=== PATIENT | male | born 1980 | race Caucasian/White ===

== ENCOUNTER 2020-02-08 18:26 | Emergency (ER) | payer OTHER, SELFPAY ==
[2020-02-08 18:28] VITALS: BP 158/70; PULSE 86; RESP 18; TEMP 36.1; O2SAT 99
--- NOTE | 2020-02-08 19:32 | ED.SKABFB ---
HPI - Skin/Abscess/Foreign Bdy General Chief complaint: Skin/Abscess/Foreign Body <Lianne Martinez PA-C - Last Filed: 02/08/20 19:36> Stated complaint: Spider Bite <Lianne Martinez PA-C - Last Filed: 02/08/20 19:36> Time Seen by Provider: 02/08/20 18:43 <Lianne Martinez PA-C - Last Filed: 02/08/20 19:36> Source: patient <Lianne Martinez PA-C - Last Filed: 02/08/20 19:36> Mode of arrival: ambulatory <Lianne Martinez PA-C - Last Filed: 02/08/20 19:36> Limitations: no limitations <Lianne Martinez PA-C - Last Filed: 02/08/20 19:36> History of Present Illness HPI narrative: This is a 39-year-old male who presents the emergency department for an area of redness to his right smith since yesterday. Reports the area is painful and warm to the touch. He has not been taking any pain medication for this. Denies fever or drainage from the area. <Lianne Martinez PA-C - Last Filed: 02/08/20 19:36> Related Data Allergies/Adverse reactions: Allergies Allergy/AdvReac Type Severity Reaction Status Date / Time No Known Allergies Allergy Verified 02/08/20 18:37 <Lianne Martinez PA-C - Last Filed: 02/08/20 19:36> Review of Systems Review of Systems: Narrative: CONSTITUTIONAL: Denies fever SKIN: Reports erythema <Lianne Martinez PA-C - Last Filed: 02/08/20 19:36> All systems reviewed & are unremarkable except as noted in HPI and below <Lianne Martinez PA-C - Last Filed: 02/08/20 19:36> [facility] Past Medical History Medical History: Medical History (Updated 02/08/20 @ 19:35 by Lianne Martinez PA-C) History of gastroesophageal reflux (GERD) <YORDY Laughlin Last Filed: 02/08/20 19:36> Social History Social History: Social History (Updated 02/08/20 @ 19:33 by Lianne Martinez PA-C) Substance use: never Gender identity (if verbalized by the patient): Male <Lianne Martinez PA-C - Last Filed: 02/08/20 19:36> Exam Narrative: Exam Narrative: GENERAL: Well-appearing, well-nourished, and in no acute distress. HEAD: Normocephalic, atraumatic. EYES: EOMI. EXTREMITIES: Normal range of motion. Small area (2.5cm) of erythema and edema to the right smith, no central fluctuance to suggest abscess SKIN: Warm, dry, no rash. NEURO: No focal deficits. Alert and oriented x3. PSYCH: Normal mood and affect <Lianne Martinez PA-C - Last Filed: 02/08/20 19:36> Course Vital Signs Vital signs: Vital Signs Temperature 97.0 F L 02/08/20 18:28 Pulse Rate 86 02/08/20 18:28 Respiratory Rate 18 02/08/20 18:28 Blood Pressure 158/70 H 02/08/20 18:28 Pulse Oximetry 99 02/08/20 18:28 Temperature 98.4 F 02/08/20 20:09 Pulse Rate 73 02/08/20 20:05 Respiratory Rate 16 02/08/20 20:05 Blood Pressure 149/78 H 02/08/20 20:05 Pulse Oximetry 100 02/08/20 20:05 <Lianne Martinez PA-C - Last Filed: 02/08/20 19:36> Vital Signs Temperature 97.0 F L 02/08/20 18:28 Pulse Rate 86 02/08/20 18:28 Respiratory Rate 18 02/08/20 18:28 Blood Pressure 158/70 H 02/08/20 18:28 Pulse Oximetry 99 02/08/20 18:28 Temperature 98.4 F 02/08/20 20:09 Pulse Rate 73 02/08/20 20:05 Respiratory Rate 16 02/08/20 20:05 Blood Pressure 149/78 H 02/08/20 20:05 Pulse Oximetry 100 02/08/20 20:05 <Urszula Marin MD - Last Filed: 02/08/20 21:00> MDM - Skin/Abscess/Foreign Bdy MDM Narrative Medical decision making narrative: Patient with small area of cellulitis to the right smith present since yesterday. He is afebrile and nontoxic-appearing. He will be started on oral antibiotics. Patient will be given primary care doctor for follow-up. Patient is stable and felt appropriate for further outpatient evaluation. Patient was given warnings to return to the ER <Lianne Martinez PA-C - Last Filed: 02/08/20 19:36> Critical Care Time Critical Care Time Critical Care Time: No <Lianne Martinez PA-C - Last Filed: 05
[2020-02-08] MEDS: KETOROLAC (*BKC) 60 MG/2 ML VIAL IM (19:53)
[2020-02-08] MEDS: CEPHALEXIN 500 MG CAPSULE PO (19:54)
[2020-02-08 20:05] VITALS: BP 149/78; PULSE 73; RESP 16; TEMP 36.9; O2SAT 100
[2020-02-08 20:09] VITALS: TEMP 36.9
== END 2020-02-08 20:09 | disposition home or self-care (01) ==
PROVIDERS: Emergency Provider General Practice
DX: L03.115 Cellulitis of right lower limb (principal); K21.9 Gastro-esophageal reflux disease without esophagitis
CPT/HCPCS: 96372; 99283; A9270; J1885

== ENCOUNTER 2022-10-28 14:25 | Emergency (ER) | payer OTHER, SELFPAY ==
--- NOTE | ~2022-10-28 | XR_ITS ---
Clinical Indication: Shortness of breath, fever PA and lateral views of the chest: Comparison: 05/17/2019 Findings: There is a probable loculated right pleural effusion, moderate, at the right upper lobe reg ion. There is patchy right lung airspace disease. Left lung is clear.. Cardiomediastinal silhouette is within normal limits. Bones and soft tissues are unremarkable. Impression: Moderate probable loculated right pleural effusion. Empyema or other complex effusion are not exclude d. Patchy right midlung airspace disease, suspicious for pneumonia. Reviewed, dictated and finalized at location M. THREADER OPERATOR Impression: Moderate probable loculated right pleural effusion. Empyema or other complex ef fusion are not excluded. Patchy right midlung airspace disease, suspicious for pneumonia.
[2022-10-28 14:40] VITALS: BP 147/91; PULSE 80; RESP 18; TEMP 36.4; O2SAT 99
--- NOTE | 2022-10-28 14:58 | ED.GENADULT ---
HPI - General Adult General Chief complaint: Upper Respiratory Infection Stated complaint: cold symptoms Time Seen by Provider: 10/28/22 14:58 Source: patient Mode of arrival: ambulatory Limitations: no limitations History of Present Illness HPI narrative: 42-year-old male patient presents to the [facility] with complaints of flu-like symptoms for the past 2 weeks with chills, body aches and fevers. Patient states he has been short of breath and coughing. Patient denies any ear pain or sore throat. Patient states he has chest pain intermittently but mostly with coughing. Patient denies any abdominal pain, nausea, vomiting or diarrhea. Patient states he has been taking [id number] medications to help with symptoms. Patient is an active smoker. Patient states he has been vaccinated against COVID but denies getting a flu shot this year. Related Data Home Medications Medication Instructions Recorded Confirmed No Home Medications 10/28/22 10/28/22 Allergies Allergy/AdvReac Type Severity Reaction Status Date / Time No Known Allergies Allergy Verified 10/28/22 14:44 Review of Systems Review of Systems: CONSTITUTIONAL: Positive fever, chills, or sweats. EYES: Denies visual changes, redness, or discharge. ENT: Denies rhinorrhea, positive congestion, denies sore throat, or otalgia. CARDIOVASCULAR: positive chest pain with coughing, palpitations, or edema. RESPIRATORY: positive cough anddyspnea. GASTROINTESTINAL: Denies abdominal pain, nausea, vomiting, or diarrhea. GENITOURINARY: Denies dysuria or hematuria. SKIN: Denies rash or itching. MUSCULOSKELETAL: Denies back pain, joint pain, or myalgia. NEUROLOGIC: Denies headache, numbness, or weakness. PSYCHIATRIC: Denies anxiety or depression. [facility] Past Medical History Medical History (Updated 10/28/22 @ 16:02 by ANALI Cunningham) History of gastroesophageal reflux (GERD) IBS (irritable bowel syndrome) Surgical History Surgical History (Updated 10/28/22 @ 14:59 by ANALI Cunningham) H/O Spinal surgery ALIF for L5, S1, 2012 Social History Social History (Updated 10/28/22 @ 15:06 by ANALI Cunningham) Smoking packs per day: 1 Smoking cigarettes per day: 20.0 Smoking status: Current every day smoker Substance use: never Gender identity (if verbalized by the patient): Male Comments At the time of my signature I agree with nursing past medical history, surgical, social, and family history. There is no relevant family history pertinent to the presenting complaint. Exam Narrative: GENERAL: Well-appearing, well-nourished, and in no acute distress. HEAD: Normocephalic, atraumatic. EYES: PERRLA and EOMI. ENT: Nares with erythema and edema noted bilaterally, no rhinorrhea or epistaxis. Mucous membranes moist. posterior pharynx with no erythema, tonsillar enlargement, exudates or lesions present. NECK: Supple. No lymphadenopathy CHEST: Clear to auscultation. No respiratory distress. Patient able talk in clear complete sentences. Coughing noted during exam HEART: Regular rate and rhythm. No murmur heard. Normal peripheral pulses. ABDOMEN: Soft, nontender, nondistended, normal active bowel sounds. EXTREMITIES: Normal range of motion. No edema. SKIN: Warm, dry, no rash. NEURO: No focal deficits. Alert and oriented x3. Course Course Level of Care: Express Care Visit Reevaluation(s) Reevaluation #1: re-evaluated patient after x-ray resulted. Discussed with patient that the x-ray does show a pretty moderate size pleural effusion in the right upper lobe. Discussed with him that this is concerning to me expressly since the breathing treatment really did not change any of the shortness of breath. We did do a walking O2 test where the patient did start out at 98% only dropped to 97% but after the walk patient did have noticeable labored breathing. Discussed with patient also concerned about a possible pulmonary embolism that could be
--- NOTE | 2022-10-28 15:04 | ECG_ITS ---
Measurements Intervals [place] Rate: 73 P: 39 [place]: 183 QRS: 50 QRSD: 108 T: 95 QT: 398 QTc: 440 Interpretive Statements SINUS RHYTHM POOR R-WAVE PROGRESSION BORDERLINE ECG INTERPRETATION BASED ON A DEFAULT AGE OF 39 YEARS COMPARED TO ECG 05/17/2019 20:46:02 NO SIGNIFICANT CHANGE Electronically Signed On 10-29-2022 11:54:27 FIRE TOWER KEEPER by Joe Salinas M.D.
[2022-10-28] MEDS: ALBUTEROL SULFATE NEB 2.5 MG/3 ML INH INHALATION (15:30)
[2022-10-28] MEDS: IPRATROPIUM BR 0.02% INH SOLN 0.5 MG/2.5 ML VIAL INHALATION (15:30)
[2022-10-28 15:54] VITALS: O2SAT 98
[2022-10-28 15:57] VITALS: O2SAT 98
== END 2022-10-28 16:00 | disposition short-term general hospital (02) ==
PROVIDERS: Emergency Provider Nurse Practitioner Family
DX: J90 Pleural effusion, not elsewhere classified (principal); R06.02 Shortness of breath; F17.210 Nicotine dependence, cigarettes, uncomplicated; K21.9 Gastro-esophageal reflux disease without esophagitis
CPT/HCPCS: 71046; 93005; 94640; 99213; G0463

== ENCOUNTER 2022-10-28 16:12 | Inpatient (IN) | payer OTHER, SELFPAY ==
--- NOTE | ~2022-10-28 | US_ITS ---
EXAMINATION: US thoracentesis DATE: 10/29/2022 12:15 INDICATION: pleural effusion TECHNIQUE: The procedure and its risks, benefits, and alternatives were discussed with the patient. P otential risks discussed included bleeding, infection, and pneumothorax. The patient understood the r isks and agreed to proceed. The skin was prepped and draped in sterile fashion. 1% lidocaine was used for local anesthesia. Under ultrasound guidance, a 5 Fr catheter with trochar was advanced into the right pleural effusion. Fluid was aspirated. The catheter was removed, and a dressing was applied. Th ere were no immediate complications. FINDINGS: Ultrasound images demonstrate a right pleural effusion and the catheter within the fluid. IMPRESSION: 1. Successful ultrasound-guided thoracentesis yielding 200 mL of opaque, red fluid. Reviewed, dictated and finalized at location A. T RAIL OPERATOR IMPRESSION: 1. Successful ultrasound-guided thoracentesis yielding 200 mL of opaque, red f luid.
--- NOTE | ~2022-10-28 | XR_ITS ---
Portable chest x-ray Comparison: 10/28/2022 Clinical History: Pleural effusion Findings: [id number] loculated right pleural effusion is similar to prior exam. Focal consoli dation the right midlung is also unchanged. Left lung remains clear. Cardiomediastinal silhouette is stable. Bones and soft tissues are unremarkable. Impression: Stable small to moderate loculated right pleural effusion with adjacent right midlung pulmonary conso lidation. Reviewed, dictated and finalized at location M. TRIC LIFT TRUCK DRIVER Impression: Stable small to moderate loculated right pleural effusion with adjacent right m idlung pulmonary consolidation.
--- NOTE | ~2022-10-28 | XR_ITS ---
EXAMINATION: [id number] DATE: 10/29/2022 12:06 INDICATION: Right pleural effusion status post thoracentesis. TECHNIQUE: Frontal and lateral views of the chest were obtained. COMPARISON: Chest 2 views 10/28/2022 FINDINGS: There is a small loculated right pleural effusion. There are small foci of gas in the pleur al effusion. There are airspace opacities in right mid and upper lung zones. The heart size is normal . IMPRESSION: 1. Small right hydropneumothorax with decrease in size of the pleural effusion component status post thoracentesis. 2. Stable airspace opacities in right mid and upper lung zones, consistent with rounded atelectasis. Reviewed, dictated and finalized at location A. ITAL FOOD SERVICE WORKER
--- NOTE | ~2022-10-28 | CT_ITS ---
Clinical Indication: Cough, chest pain CT Scan of the Chest with Contrast: Technique: Contiguous sections were acquired throughout the chest after intravenous administration of 100 cc of Omnipaque 350. Dose reduction technique was used on this scan by utilizing automated expos ure control and iterative reconstruction technique. The dose-length product (DLP) was 1031.13 mGy-cm. Findings: There is no evidence of any significant mediastinal, hilar or axillary lymphadenopathy. No definite l arge central pulmonary embolus seen. Timing of the contrast bolus is suboptimal to evaluate for small er, more peripheral pulmonary emboli. There is no evidence of aortic dissection or aneurysm. No peric ardial effusion. There is a small to moderate loculated pleural fluid collection at the right lung apex extending wing g the upper, posterior right hemithorax, with thickening of the pleural lining. There is adjacent pul monary consolidation in the right upper lobe and right middle lobe, with comet-tail appearance, most suggestive of rounded atelectasis. Left lung is clear. Images through the upper abdomen reveal probable diffuse fatty infiltration of th e liver. Impression: Small to moderate loculated pleural fluid collection in the right hemithorax, as detailed above, susp icious for empyema. Other complex/exudative effusions are within the differential diagnosis. Adjacent pulmonary consolidation the right upper and middle lobes, with morphology most consistent wi th rounded atelectasis. Correlate for pneumonia. No large central pulmonary embolus seen. Timing of the contrast bolus is suboptimal to evaluate for s maller, more peripheral pulmonary emboli. Reviewed, dictated and finalized at [facility]. OSION CONTROL ENGINEER Impression: Small to moderate loculated pleural fluid collection in the right hemithorax, a s detailed above, suspicious for empyema. Other complex/exudative effusions are within the differential diagnosis. Adjacent pulmonary consolidation the right upper and middle lobes, with morphol ogy most consistent with rounded atelectasis. Correlate for pneumonia. No large central pulmonary embolus seen. Timing of the contrast bolus is subopt imal to evaluate for smaller, more peripheral pulmonary emboli.
[2022-10-28 16:15] VITALS: BP 162/78; PULSE 78; RESP 16; TEMP 36.7; O2SAT 98
--- NOTE | 2022-10-28 16:22 | ECG_ITS ---
Measurements Intervals [place] Rate: 75 P: 46 UT: 186 QRS: 57 QRSD: 135 T: 106 QT: 393 QTc: 440 Interpretive Statements SINUS RHYTHM WITH SINUS ARRHYTHMIA INTRAVENTRICULAR CONDUCTION DELAY BORDERLINE ECG COMPARED TO ECG 10/28/2022 15:19:51 NO SIGNIFICANT CHANGES Electronically Signed On 10-29-2022 16:14:20 VALVE SEATER OPERATOR by Wild Disla M.D.
[2022-10-28 16:37] LABS: Basophils Absolute Auto 0.1 K/mm3 (0.0-0.1); Basophils Percent Auto 0.8 % (0.2-1.2); Eosinophils Absolute Auto 0.2 K/mm3 (0-0.3); Eosinophils Percent Auto 2.4 % (0-4.4); Hematocrit 45.9 % (42.0-52.0); Hemoglobin 15.2 g/dL (14.0-18.0); Immature Granulocyte Absolute 0.03 K/mm3 (0.00-0.031); Immature Granulocyte Percent A 0.3 % (0-0.5); Lymphocytes Absolute Auto 3.14 K/mm3 (0.9-3.2); Lymphocytes Percent Auto 33.7 % (18.3-44.2); Mean Corpuscular HGB Conc 33.1 g/dl (32-36); Mean Corpuscular Hemoglobin 29.3 pg (26-34); Mean Corpuscular Volume 88.6 fl (80-100); Mean Platelet Volume 9.7 fl (7.4-10.4); Monocytes Absolute Auto 0.7 K/mm3 (0.1-0.6); Monocytes Percent Auto 7.9 % (2.6-8.5); Neutrophils Absolute Auto 5.1 K/mm3 (1.3-6.7); Neutrophils Percent Auto 54.9 % (45.5-73.1); Platelet Count Result 211 k/mm3 (150-375); Red Blood Count 5.18 M/mm3 (4.6-6.20); Red Cell Distribution Width 13.7 % (11.5-14.5); White Blood Count 9.3 K/mm3 (4.5-10.0)
--- NOTE | 2022-10-28 16:48 | ED.SOB ---
HPI - SOB/Dyspnea General Chief Complaint: Shortness of Breath/Dyspnea Stated Complaint: fluid on my lungs Time Seen by Provider: 10/28/22 16:46 Source: patient and family Mode of arrival: ambulatory Limitations: no limitations History of Present Illness HPI Narrative: Patient is 42 years old white male referred to our emergency room from urgent care because of shortness of breath. Patient reports having cold symptoms 2 weeks ago, subsequently got shortness of breath on exertion, productive cough of clear sputum and not feeling well. Patient's had similar symptoms initially and got better in 5 days. Patient tested negative for COVID at home. Patient is fully vaccinated for COVID-19. Related Data Home Medications Medication Instructions Recorded Confirmed No Home Medications 10/28/22 10/28/22 Allergies Allergy/AdvReac Type Severity Reaction Status Date / Time No Known Allergies Allergy Verified 10/28/22 16:17 Review of Systems Review of Systems: All systems reviewed & are unremarkable except as noted in HPI and below PMFSH Past Medical History Medical History History of gastroesophageal reflux (GERD) IBS (irritable bowel syndrome) Surgical History Surgical History H/O Spinal surgery ALIF for L5, S1, 2012 Social History Social History Smoking packs per day: 1 Smoking cigarettes per day: 20.0 Smoking status: Current every day smoker Substance use: never Gender identity (if verbalized by the patient): Male Exam Narrative: General appearance: Well-developed, well-nourished Skin: Normal color Head: Normocephalic, nontraumatic Eyes: Clear conjunctiva ENT: Oropharynx normal, ears normal, nose normal Neck: Supple, nontender Chest and respiratory: Airway patent, no respiratory distress, no accessory muscle use, rales at the right Heart: Regular rate/rhythm Abdomen: Soft, nontender, no organomegaly, quiet bowel sounds Vascular: Normal peripheral pulses, normal capillary refill. Musculoskeletal: Normal range of motion, nontender back Neurologic: Alert and oriented ?3, MUTUAL FUNDS AGENT is normal as tested, no gross motor deficit Course Consultations Consultation #1: Dr. Rome Admit patient to the hospitalist, get right side ultrasound thoracentesis tomorrow Date: 10/28/22 Time: 17:44 Vital Signs Vital signs: Vital Signs Temperature 36.7 C 10/28/22 16:15 Pulse Rate 78 10/28/22 16:15 Respiratory Rate 16 10/28/22 16:15 Blood Pressure 162/78 H 10/28/22 16:15 Pulse Oximetry 98 10/28/22 16:15 Temperature 36.7 C 10/28/22 16:15 Pulse Rate 75 10/28/22 17:18 Respiratory Rate 20 10/28/22 17:18 Blood Pressure 130/93 H 10/28/22 17:18 Pulse Oximetry 97 10/28/22 17:18 Oxygen Delivery Room Air 10/28/22 17:16 MDM - SOB/Dyspnea MDM Narrative Medical decision making narrative: Patient presents with progressive shortness of breath over the last 2 weeks. Does not take medicine regularly. Tobacco use. Pneumonia, coronary artery disease, pulmonary embolism, lingering effect of viral infection including COVID is my concern. Labs, chest x-ray, CTA rule out PE ordered. Work-up today showed normal CBC, potassium of 3.2, 40 mEq potassium chloride ordered, ABG on room air showed saturation of 91.3. Chest x-ray and CTA to rule out PE showed moderate probable loculated right pleural effusion. Empyema or other complex effusions are not excluded. Patchy right midlung airspace disease suspicious for pneumonia. Dr. Rome was consulted, agreed with admi
[2022-10-28 16:49] LABS: Alanine Aminotransferase 44 U/L (6-50); Albumin Level 3.9 g/dL (3.5-5.1); Alkaline Phosphatase 114 U/L (38-126); Anion Gap 4 mmol/L (8-16); Aspartate Amino Transferase 46 U/L (17-59); Bilirubin,Total 0.7 mg/dL (0.2-1.3); Blood Urea Nitrogen 11 mg/dL (9-20); Calcium 8.3 mg/dL (8.4-10.2); Carbon Dioxide 28 mmol/L (22-30); Chloride 105 mmol/L (98-107); Estimated CRCL calculation 187 ml/min; Estimated Glomerular Filt Rate > 60; Glucose 110 mg/dL (65-110); Potassium 3.2 mmol/L (3.4-5.0); Sodium 137 mmol/L (137-145)
[2022-10-28 17:16] VITALS: O2SAT 93
[2022-10-28 17:18] VITALS: BP 130/93; PULSE 75; RESP 20; O2SAT 97
[2022-10-28 17:26] LABS: Alveolar/Arterial O2 Gradient 41.3 mmHg; Base Excess ABG 2.2 mEq/l (+/-2.0); Fractional Inspired Oxygen 21 %; HCO3 ABG 26.7 mEq/l (22.0-26.0); Oxygen Content ABG 18.8 %vol (16.0-22.0); Oxygen Saturation ABG 91.3 % (95.0-100.0); PCO2 ABG 41.2 mmHg (35.0-45.0); PO2 ABG 59.1 mmHg (80.0-100.0); PO2 FiO2 Ratio Arterial Blood 2.81 %; Total Hemoglobin 15.3 g/dL (12.0-18.0)
[2022-10-28 17:28] LABS: Oxyhemoglobin 87.3 % THb (90.0-100.0); Site Drawn RIGHT BRACHIAL
[2022-10-28 17:29] LABS: Device ROOM AIR
[2022-10-28 17:35] LABS: NT Pro B Type Natriuretic Pept < 20 pg/mL (19.9-100); Troponin I < 0.012 ng/mL (0.000-0.034)
--- NOTE | 2022-10-28 18:38 | PM.IMHP ---
H&P: HPI History of Present Illness Date/Time: 10/28/22 18:38 Chief Complaint: Shortness of breath Narrative: This is a 42-year-old male patient with a history of tobacco abuse. The patient stated that he has been having cold-like symptoms for approximately 2 weeks. The patient became short of breath on exertion and had a productive cough of clear sputum. Patient has been having clear sputum and not feeling well. The patient's had similar symptoms and she wished for the better in 5 days. Patient tested negative COVID home. He has no with her medical conditions. CTA was read as Small to moderate loculated pleural fluid collection in the right hemithorax, as detailed above, suspicious for empyema. Other complex/exudative effusions are within the differential diagnosis. Adjacent pulmonary consolidation the right upper and middle lobes, with morphology most consistent with rounded atelectasis. Correlate for pneumonia. No large central pulmonary embolus seen. Timing of the contrast bolus is suboptimal to evaluate for smaller, more peripheral pulmonary emboli. Chest x-ray was read asModerate probable loculated right pleural effusion. Empyema or other complex effusion are not excluded. Patchy right midlung airspace disease, suspicious for pneumonia. The patient was started on Levaquin, Zosyn and vancomycin. He was also supplemented with potassium. Potassium is 3.2. The patient was found to be negative for COVID. Patient is being admitted to inpatient status on the date of service of 10/28/2022 Review of Systems Review of Systems: See HPI All systems reviewed & are unremarkable except as noted in HPI and below Constitutional: Constitutional: Reports as per HPI and Reports no additional constitutional complaints Eyes: Eyes: Reports as per HPI and Reports no additional eye complaints ENT: Reports system reviewed and no additional complaints, except as documented and Reports Normal hearing present Cardiovascular: Cardiovascular: Reports no additional cardiovascular complaints Respiratory: Respiratory: Reports no additional respiratory complaints and Reports no additional respiratory complaints Gastrointestinal: Gastrointestinal: Reports as per HPI and Reports no additional gastrointestinal complaints Musculoskeletal: Musculoskeletal: Reports no additional musculoskeletal complaints Integumentary/Breasts: Skin/Breast: Reports system reviewed and no additional complaints, except as docu and Reports as per HPI Neurologic: Reports system reviewed and no additional complaints, except as documented, Reports as per HPI and Reports Normal hearing present Psychiatric: Psychiatric: Reports no additional psychiatric complaints and Reports as per HPI Endocrine: Endocrine: Reports no additional endocrine complaints Hematologic/Lymphatic: Hematologic/Lymphatic: Reports no additional hematologic/lymphatic complaints Allergic/Immunologic: Allergic/Immunologic: Reports no additional allergic/immunologic complaints PMFSH Past Medical History Medical History History of gastroesophageal reflux (GERD) IBS (irritable bowel syndrome) Surgical History Surgical History H/O Spinal surgery ALIF for L5, S1, 2012 Family History Family History (Updated 10/28/22 @ 22:15 by Dalila Dela Cruz NP) Father Chronic a-fib Grandparent Acute myocardial infarction Other Unknown family medical history Social History Social History (Updated 10/28/22 @ 22:16 by Dalila Dela Cruz NP) Social History: Patient is and has 2 children. He works [employer] [facility] [employer] [facility]. The patient smokes every day. Code status full code Smoking packs per day: 1 Smoking cigarettes per day: 20.0 Smoking status: Current every day smoker Substance use: never Gender identity (if verbalized by the patient): Male [employer]
[2022-10-28] MEDS: PIPERACILLIN/TAZOBACTAM SOD 4.5 GM in SODIUM CHLORIDE 0.9% IV 100 ML 200 ML IVPB (18:48)
[2022-10-28] MEDS: POTASSIUM CHLORIDE 20 MEQ PACKET (FOR LIQUID) 40 MEQ PO (18:50)
[2022-10-28 18:59] VITALS: BP 139/73; PULSE 72; RESP 18; O2SAT 99
[2022-10-28 19:24] LABS: SARS-CoV-2 RNA PCR Negative
[2022-10-28 23:15] VITALS: BP 127/63; PULSE 100; RESP 17; O2SAT 97
[2022-10-28 23:24] LABS: D Dimer 1.11 ug/mL (<0.48); INR 1.1; Partial Thromboplastin Time 29.1 SECONDS (22.3-36.8); Prothrombin Time 13.4 Seconds (11.1-14.7)
[2022-10-29] VITALS (17 sets, daily range): BP systolic 124–144; BP diastolic 69–82; PULSE 71–86; RESP 14–22; TEMP 35.9–36.4; O2SAT 93–100
[2022-10-29] MEDS: NICOTINE (*PBKC) 21 MG PATCH 1 PATCH TRANSDERM (00:28)
[2022-10-29] MEDS: SODIUM CHLORIDE 0.9% IV 1,000 ML 125 ML IV CONT ×2 (00:29→13:42)
[2022-10-29] MEDS: PIPERACILLIN/TAZOBACTAM SOD 4.5 GM in SODIUM CHLORIDE 0.9% IV 100 ML 200 ML IVPB ×4 (00:31→17:11)
--- NOTE | 2022-10-29 00:51 | ADMGEN ---
This patient, Conrado Aden, was admitted to [facility] Surg Room 329-01. Patient/family oriented to hospital policies and general routines including ID bracelet, bed and alarms, visiting hours, pain management, procedures, bathroom and other care routines, personal items, smoking policy, room service/diet, and visiting hours. Information on how to activate the Rapid Response Team has been discussed. Patient/Family are encouraged to report perceived risks to care and to ask questions if they do not understand what they are told or what they should do.
[2022-10-29] MEDS: ALBUTEROL SULFATE NEB 2.5 MG/3 ML INH INHALATION ×4 (01:32→21:58)
[2022-10-29] MEDS: IPRATROPIUM BR 0.02% INH SOLN 0.5 MG/2.5 ML VIAL INHALATION ×4 (01:32→21:58)
[2022-10-29 06:37] LABS: Anion Gap 7 mmol/L (8-16); Blood Urea Nitrogen 8 mg/dL (9-20); Calcium 7.7 mg/dL (8.4-10.2); Carbon Dioxide 24 mmol/L (22-30); Chloride 106 mmol/L (98-107); Estimated CRCL calculation 187 ml/min; Estimated Glomerular Filt Rate > 60; Glucose 170 mg/dL (65-110); Potassium 3.7 mmol/L (3.4-5.0); Sodium 137 mmol/L (137-145)
[2022-10-29] MEDS: POTASSIUM CHLORIDE 20 MEQ TABLET.ER PO ×2 (08:25→17:11)
[2022-10-29 08:47] LABS: Lactate Dehydrogenase 166 U/L (120-246)
[2022-10-29 09:19] LABS: Basophils Percent Auto 0.4 % (0.2-1.2); Eosinophils Absolute Auto 0.2 K/mm3 (0-0.3); Eosinophils Percent Auto 2.3 % (0-4.4); Hematocrit 40.6 % (42.0-52.0); Hemoglobin 13.1 g/dL (14.0-18.0); Immature Granulocyte Absolute 0.01 K/mm3 (0.00-0.031); Immature Granulocyte Percent A 0.1 % (0-0.5); Lymphocytes Percent Auto 24.3 % (18.3-44.2); Mean Corpuscular HGB Conc 32.3 g/dl (32-36); Mean Corpuscular Hemoglobin 29.6 pg (26-34); Mean Corpuscular Volume 91.6 fl (80-100); Mean Platelet Volume 10.6 fl (7.4-10.4); Monocytes Absolute Auto 0.5 K/mm3 (0.1-0.6); Monocytes Percent Auto 6.5 % (2.6-8.5); Neutrophils Absolute Auto 5.2 K/mm3 (1.3-6.7); Neutrophils Percent Auto 66.4 % (45.5-73.1); Platelet Count Result 199 k/mm3 (150-375); Red Blood Count 4.43 M/mm3 (4.6-6.20); Red Cell Distribution Width 13.9 % (11.5-14.5); White Blood Count 7.8 K/mm3 (4.5-10.0)
--- NOTE | 2022-10-29 12:20 | PM.CNPUL ---
Assessment and Plan Assessment and plan (1) Pleural effusion, right: Code(s): J90 - Pleural effusion, not elsewhere classified Status: Acute Assessment and Plan: patient with a history of tobacco use who, 37 pack years, currently smoking, presents now with acute respiratory illness on 10/11/2022 that improved other than shortness of breath and fatigue. Patient is afebrile, hemodynamically stable, white blood cell count was 9.[address] angiogram of the chest showed no pulmonary embolism, small to moderate loculated right upper lobe effusion with adjacent round atelectasis and compressive atelectasis. Patient has been empirically started on vancomycin, Zosyn and Levaquin pending cultures. Agree with right thoracentesis to assess for complex pleural effusion and/or empyema. If the patient has a complex pleural effusion and/or empyema he will need transfer to a facility that has a thoracic surgery team for consultation. Discussed with Genesis Adams, will follow with you. History of Present Illness History of Present Illness Consult date: 10/29/22 Chief complaint: loculated pleural effusion,pneumonia Narrative: 10/29/2022: This is a new pulmonary consult for loculated right pleural effusion. 42-year-old male with a history of tobacco use and on no home medications presented to the emergency room on 10/28/2021 with shortness of breath and fatigue. At baseline patient states that he goes to the gym 5 times a week and he walks on the treadmill for 15-20 minutes and sweats but does not drip sweat. He then lips wait for another hour and he does this without any respiratory limitations. Patient currently works at [employer] and is able to complete an 8 hour day on his feet all day And says that he walks anywhere from 8000 to 70865 steps a day. patient smokes tobacco from age 17 to current at 1 and half packs per day for total of 37 pack years. Patient is exposed to secondhand smoke from his current . 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 Patient was in his usual state of health until 10/11/2022 when he developed an illness with cough, fever and chills, body aches, nasal congestion with nasal drainage and phlegm production. He had no hemoptysis. Patient remains sick with some improvement over the respiratory complaints over the next week but then the development of shortness of breath and weakness started on 10/24/2022. This caused him to call in sick to work. Currently the patient denies fever, chills, cough, phlegm production or hemoptysis. He does have shortness of breath and some central chest discomfort when he coughs graded as 3/10. Patient presented to the emergency room on 10/28/2022 with a white blood cell count of 9.3, hemoglobin of 15.2, creatinine 0.6, BNP less than 20, troponin negative, COVID RT PCR study negative, D-dimer 1.11 which was positive. Patient had a room air blood gas with pH of 7.34/41/59. Patient had a CT angiogram of the chest which showed no pulmonary embolism, small to moderate loculated right upper pleural effusion with adjacent round atelectasis and mild atelectasis. he was empirically started on vancomycin, Zosyn and Levaquin. 10/29 The patient tells me he is still short of breath and has dyspnea on exertion. He feels weak and fatigued. He is afebrile. White blood cell count is 7.6, creatinine is 0.6. DATA: 10/28 Clinical Indication: Cough, chest pain CT Scan of the Chest with Contrast: Technique: Contiguous sections were acquired throughout the chest after intravenous administration of 100 cc of Omnipaque 350. Dose reduction technique was used on this scan by utilizing automated exposure control and iterative reconstruction technique. The dose-length product (DLP) was 10
[2022-10-29 13:00] LABS: Appearance Pleural Fluid Bloody (Clear); Color Pleural Fluid Red (Colorless); Pleural fluid source Pleural fluid
[2022-10-29 13:02] LABS: pH Pleural Fluid 7.428 (7.210-7.500)
[2022-10-29 13:07] LABS: Lymphocytes Pleural Fluid 55 %; Monocytes Pleural Fluid 5 %; Neutrophils Pleural Fluid 39 % (0-25); Other Cells Pleural Fluid 1 %
--- NOTE | 2022-10-29 16:01 | PM.IMPN ---
Progress Note: A&P Assessment and Plan (1) Pleural effusion on right: Code(s): J90 - Pleural effusion, not elsewhere classified Status: Inactive Assessment and Plan: Patient presents to the ED with shortness of breath on exertion and productive cough with clear sputum. CTA suspicious for empyema, and pneumonia. ER physician consulted Dr. Rome. Dr. Rome following patient and appreciate recommendations. Therapeutic thoracentesis conducted today and yielded 200 mL of opaque red fluid Small to moderate loculated pleural fluid collection in the right hemithorax, as detailed above, suspicious for empyema. Other complex/exudative effusions are within the differential diagnosis. continue with Zosyn, Levaquin and vancomycin Continue with nebulizer treatments Cultures are pending Pleural fluid Gram stain negative. (2) Acute hypokalemia: Code(s): E87.6 - Hypokalemia Status: Acute Assessment and Plan: Patient with hypokalemia upon ED arrival Replace potassium as necessary (3) Tobacco use: Code(s): Z72.0 - Tobacco use Status: Acute Assessment and Plan: The patient has been ordered a nicotine patch Time Spent With Patient Time with patient: 25 - 35 minutes Subjective Date/time seen: 10/29/22 16:01 Interval history: Patient resting in bed post thoracentesis. Patient states that he only has shortness of breath with movement. He is resting comfortably in bed. Patient still has moderate cough. Patient states that his cold symptoms started approximately 3 weeks ago. Residual symptoms include shortness of breath with activity and cough. Patient denies fever, dizziness, chest pain, nausea, vomiting, hemoptysis, pain with deep inspiration or expiration. Review of Systems Review of Systems: All systems reviewed & are unremarkable except as noted in HPI and below Exam Narrative: GENERAL: Comfortable, no acute distress HENMT: moist mucous membranes EYES: EOM intact b/l NECK: no lymphadenopathy RESPIRATORY: clear to auscultation CARDIO: RRR GI: soft, nontender, bowel sounds present SKIN: no rashes EXTREMITIES: no edema, redness or tenderness Objective Data Vital Signs Vital Signs: Vital Signs - 24 hr 10/28/22 16:15 10/28/22 17:16 10/28/22 17:18 Temperature 98.1 F Pulse Rate 78 75 Respiratory Rate 16 20 Blood Pressure 162/78 H 130/93 H Pulse Oximetry 98 93 97 Oxygen Delivery Room Air 10/28/22 18:59 10/28/22 23:15 10/29/22 01:33 Temperature Pulse Rate 72 100 73 Respiratory Rate 18 17 18 Blood Pressure 139/73 127/63 Pulse Oximetry 99 97 Oxygen Delivery 10/29/22 01:33 10/29/22 01:54 10/29/22 07:52 Temperature Pulse Rate 73 75 72 Respiratory Rate 18 18 18 Blood Pressure Pulse Oximetry 93 Oxygen Delivery Room Air 10/29/22 07:54 10/29/22 08:06 10/29/22 04:00 Temperature 96.6 F L Pulse Rate 72 78 Respiratory Rate 18 18 14 Blood Pressure 128/69 Pulse Oximetry 97 98 Oxygen Delivery Room Air 10/29/22 07:00 10/29/22 08:35 10/29/22 08:00 Temperature 96.9 F L 97.6 F Pulse Rate 86 72 Respiratory Rate 14 22 H Blood Pressure 144/80 H 124/70 Pulse Oximetry 100 100 100 Oxygen Delivery Room Air 10/29/22 12:13 10/29/22 12:14 10/29/22 12:31 Temperature 97.3 F L Pulse Rate 73 71 83 Respiratory Rate 18 Blood Pressure 135/76 137/73 134/70 Pulse Oximetry 99 99 98 Oxygen Delivery 10/29/22 14:16 10/29/22 14:30 Temperature Pulse Rate 78 Respiratory Rate 18 16 Blood Pressure Pulse Oximetry Oxygen Delivery Intake/Output Intake/Output: Intake & Output 10/26/22 10/27/22 10/28/22 10/29/22 23:59 23:59 23:59 23:59 Intake Total 250 1700 Output Total 1600 Balance 250 100 Meds/Results Medications: Active Medications Generic Name Dose Route Start Last Admin Trade Name Freq PRN Reason Stop Dose Admin Acetaminophen 650 mg
[2022-10-30] VITALS (9 sets, daily range): BP systolic 129–149; BP diastolic 62–78; PULSE 66–80; RESP 16–20; TEMP 35.8–36.7; O2SAT 97–99
[2022-10-30] MEDS: PIPERACILLIN/TAZOBACTAM SOD 4.5 GM in SODIUM CHLORIDE 0.9% IV 100 ML 200 ML IVPB ×4 (00:20→17:52)
[2022-10-30] MEDS: IPRATROPIUM BR 0.02% INH SOLN 0.5 MG/2.5 ML VIAL INHALATION ×3 (03:33→12:59)
[2022-10-30] MEDS: ALBUTEROL SULFATE NEB 2.5 MG/3 ML INH INHALATION ×3 (03:35→12:59)
[2022-10-30] MEDS: SODIUM CHLORIDE 0.9% IV 1,000 ML 125 ML IV CONT (04:08)
[2022-10-30] MEDS: ACETAMINOPHEN 325 MG TABLET 650 MG PO ×2 (05:48→16:28)
[2022-10-30 06:30] LABS: Basophils Absolute Auto 0.1 K/mm3 (0.0-0.1); Basophils Percent Auto 0.7 % (0.2-1.2); Eosinophils Absolute Auto 0.2 K/mm3 (0-0.3); Eosinophils Percent Auto 1.7 % (0-4.4); Hematocrit 40.7 % (42.0-52.0); Hemoglobin 13.1 g/dL (14.0-18.0); Immature Granulocyte Absolute 0.04 K/mm3 (0.00-0.031); Immature Granulocyte Percent A 0.4 % (0-0.5); Lymphocytes Absolute Auto 2.25 K/mm3 (0.9-3.2); Lymphocytes Percent Auto 21.8 % (18.3-44.2); Mean Corpuscular HGB Conc 32.2 g/dl (32-36); Mean Corpuscular Hemoglobin 29.4 pg (26-34); Mean Corpuscular Volume 91.3 fl (80-100); Mean Platelet Volume 10.1 fl (7.4-10.4); Monocytes Absolute Auto 0.7 K/mm3 (0.1-0.6); Monocytes Percent Auto 6.6 % (2.6-8.5); Neutrophils Absolute Auto 7.1 K/mm3 (1.3-6.7); Neutrophils Percent Auto 68.8 % (45.5-73.1); Platelet Count Result 188 k/mm3 (150-375); Red Blood Count 4.46 M/mm3 (4.6-6.20); Red Cell Distribution Width 13.9 % (11.5-14.5); White Blood Count 10.3 K/mm3 (4.5-10.0)
[2022-10-30 06:42] LABS: Alanine Aminotransferase 36 U/L (6-50); Albumin Level 3.7 g/dL (3.5-5.1); Alkaline Phosphatase 96 U/L (38-126); Anion Gap 6 mmol/L (8-16); Aspartate Amino Transferase 32 U/L (17-59); Bilirubin,Total 0.5 mg/dL (0.2-1.3); Blood Urea Nitrogen 6 mg/dL (9-20); Calcium 8.1 mg/dL (8.4-10.2); Carbon Dioxide 25 mmol/L (22-30); Chloride 101 mmol/L (98-107); Estimated CRCL calculation 187 ml/min; Estimated Glomerular Filt Rate > 60; Glucose 202 mg/dL (65-110); Potassium 3.7 mmol/L (3.4-5.0); Sodium 132 mmol/L (137-145)
--- NOTE | 2022-10-30 07:00 | ECHO_ITS ---
Patient Info Name: Conrado Aden Age: 42 years : 1980 Gender: Male Ht: 73 in Wt: 275 lbs BSA: 2.58 m2 HR: 65 bpm BP: 129 / 62 mmHg Technical Quality: Poor Exam Date: 10/30/2022 1:56 PM Exam Location: [facility] Pulmonary Patient Status: Inpatient Admit Date: 10/28/2022 Staff Ordering Physician: Joe Rome MD Front Counter Attendant: Vladimir Ahmadi, JOHN, RT Attending Provider: Blanka Lanza MD Referring Physician: Wild GARNICA; Exam Type: CA echo dop color flow w con Study Info Indications - assess L/RV fx Complete two-dimensional, color flow and Doppler transthoracic echocardiogram is performed with contrast to opacify the left ventricle and to improve the deliniation of the left ventricle endocardial borders. Summary 1. Technically suboptimal study due to poor sonographic images. 2. Definity contrast administered improved wall motion interpretation. 3. Left ventricular chamber dimension is moderately enlarged. 4. Left ventricular systolic function is normal, estimated at 55-60%. 5. The left ventricular diastolic function is normal. 6. E/e' 5 is not elevated. Left Ventricle Technically suboptimal study due to poor sonographic images. Definity contrast administered improved wall motion interpretation. Left ventricular chamber dimension is moderately enlarged. Left ventricular systolic function is normal, estimated at 55-60%. The left ventricular diastolic function is normal. E/e' 5 is not elevated. Right Ventricle Right ventricular systolic function is normal and with normal TAPSE 2.9 cm. Right ventricular chamber dimension is normal. Left Atria Left atrial chamber dimension is normal. Right Atria Right atrial chamber dimension is normal. Aortic Valve The aortic valve is not well visualized. Cannot determine number of aortic valve leaflets. There is no aortic valve stenosis. There is no aortic valve regurgitation. Pulmonic Valve The pulmonic valve is not well visualized. Mitral Valve There is no mitral valve stenosis. There is no mitral valve regurgitation. Tricuspid Valve There is no tricuspid valve regurgitation. Pericardium/Pleural There is no pericardial effusion. Inferior Vena Cava Normal inferior vena cava with >50% collapse upon inspiration consistent with normal right atrial pressure, 5 mmHg. Aorta The aortic root size at the sinus of Valsalva is normal. Left Ventricular Outflow Tract Name Value Normal LVOT Doppler LVOT Peak Gradient 4 mmHg LVOT Mean Gradient 3 mmHg LVOT VTI 22.10 cm LVOT VTI/AV VTI Ratio 0.90 Mitral Valve Name Value Normal MV Doppler MV Decel Bath 261.99 cm/s2 MV PHT 0 s MV Area (PHT) 2.63 cm2 4.00-5.00 MV Diastolic Function
[2022-10-30 07:13] LABS: Vancomycin Trough 6.3 ug/mL (10.0-20.0)
[2022-10-30] MEDS: POTASSIUM CHLORIDE 20 MEQ TABLET.ER PO ×2 (08:45→16:28)
--- NOTE | 2022-10-30 10:50 | PM.IMPN ---
Progress Note: A&P Assessment and Plan (1) Pleural effusion on right: Code(s): J90 - Pleural effusion, not elsewhere classified Status: Inactive Assessment and Plan: Patient presents to the ED with shortness of breath on exertion and productive cough with clear sputum. CTA suspicious for empyema, and pneumonia. ER physician consulted Dr. Rome. Dr. Rome following patient and appreciate recommendations. Therapeutic thoracentesis conducted today and yielded 200 mL of opaque red fluid Small to moderate loculated pleural fluid collection in the right hemithorax, as detailed above, suspicious for empyema. Other complex/exudative effusions are within the differential diagnosis. Zosyn, Levaquin and vancomycin nebulizer treatments Cultures are pending Pleural fluid Gram stain negative. 10/30/22 Discussed patient's case with Dr. Rome and he revealed that he was concerned for fibrothorax after talking to IR. Dr. Rome in contact with Dr. Gonzales, cardiothoracics, at [facility] and he recommends patient undergo thoracotomy. Empyema still in the differential although an empyema would still require transfer to Cardiothoracic surgery. Contacted [facility] transfer line. Patient is on wait list at [facility]. Expecting transfer in the next day or 2. Advised by Cardiothoracic surgery that patient be continued on IV antibiotic therapy. Patient remains afebrile with mild symptoms such as shortness of breath with exertion and mild cough. Cultures pending Discussed smoking cessation for approximately 3 minutes. (2) Acute hypokalemia: Code(s): E87.6 - Hypokalemia Status: Acute Assessment and Plan: Patient with hypokalemia upon ED arrival Replace potassium as necessary (3) Tobacco use: Code(s): Z72.0 - Tobacco use Status: Acute Assessment and Plan: The patient has been ordered a nicotine patch Time Spent With Patient Time with patient: 25 - 35 minutes Subjective Date/time seen: 10/30/22 10:50 Interval history: Patient resting comfortably in bed. No new complaints. Patient had walking the halls without difficulty. States that shortness of breath is with exertion. Cough still present. Review of Systems Review of Systems: All systems reviewed & are unremarkable except as noted in HPI and below Exam Narrative: GENERAL: Comfortable, no acute distress HENMT: moist mucous membranes EYES: EOM intact b/l NECK: no lymphadenopathy RESPIRATORY: clear to auscultation CARDIO: RRR GI: soft, nontender, bowel sounds present SKIN: no rashes EXTREMITIES: no edema, redness or tenderness Objective Data Vital Signs Vital Signs: Vital Signs - 24 hr 10/29/22 12:13 10/29/22 12:14 10/29/22 12:31 Temperature 97.3 F L Pulse Rate 73 71 83 Respiratory Rate 18 Blood Pressure 135/76 137/73 134/70 Pulse Oximetry 99 99 98 Oxygen Delivery 10/29/22 14:16 10/29/22 14:30 10/29/22 22:00 Temperature Pulse Rate 78 76 Respiratory Rate 18 16 18 Blood Pressure Pulse Oximetry Oxygen Delivery 10/29/22 22:13 10/29/22 20:00 10/30/22 03:35 Temperature 97 F L Pulse Rate 78 77 72 Respiratory Rate 16 14 16 Blood Pressure 140/82 Pulse Oximetry 99 Oxygen Delivery 10/29/22 20:00 10/30/22 04:00 10/30/22 08:14 Temperature 96.4 F L Pulse Rate 72 78 Respiratory Rate 16 16 18 Blood Pressure 148/72 H Pulse Oximetry 99 98 Oxygen Delivery Room Air 10/30/22 08:15 10/30/22 08:43 10/30/22 08:00 Temperature 96.7 F L Pulse Rate 76 73 Respiratory Rate 20 Blood Pressure 129/62 Pulse Oximetry 97 98 Oxygen Delivery Room Air Room Air Intake/Output Intake/Output: Intake & Output 10/27/22 10/28/22 10/29/22 10/30/22 23:59 23:59 23:59 23:59 Intake Total 250 4140 450 Output Total 1600 550 Balance 250 2540 -100 Meds/Results Medications: Active Medications Generic Name Dose Route Start Last Admin
--- NOTE | 2022-10-30 11:23 | PM.PNPUL ---
Progress Note: A&P Assessment and Plan (1) Pleural effusion, right: Code(s): J90 - Pleural effusion, not elsewhere classified Status: Acute Assessment and Plan: patient with a history of tobacco use who, 37 pack years, currently smoking, presents now with acute respiratory illness on 10/11/2022 that improved other than shortness of breath and fatigue. Patient is afebrile, hemodynamically stable, white blood cell count was 9.[address] angiogram of the chest showed no pulmonary embolism, small to moderate loculated right upper lobe effusion with adjacent round atelectasis and compressive atelectasis. Patient has been empirically started on vancomycin, Zosyn and Levaquin pending cultures. Agree with right thoracentesis to assess for complex pleural effusion and/or empyema. If the patient has a complex pleural effusion and/or empyema he will need transfer to a facility that has a thoracic surgery team for consultation. Ultrasound-guided thoracentesis was performed. This demonstrated a thickened pleura, I spoke with radiologist and was very difficult to pass the needle through this rind. 200 mL of opaque red fluid was obtained and then the patient developed severe cramping pain and the procedure was terminated. The pH was 7.43. The Gram stain showed moderate white blood cells with no organisms. The cells differential was 39% neutrophils 55% lymphocytes, 5% monocytes and other 1. Post procedure chest x-ray showed a small apical pneumothorax. 10/30 The patient tells me he feels the same. He feels weak and fatigued. He is afebrile. Patient is no respiratory distress on room air with saturations 99%. White blood cell count is 10.3. Chest x-ray shows stable loculated right pleural effusion. I spoke with cardiothoracic surgery at [facility], Dr. Gonzales, and discuss the case with him and discussed the CT scan which he had. This is more characteristic of a fibrothorax and he felt the patient's best option for recovery was to be evaluated for thoracotomy. The patient was agreeable to this and he has been accepted for transfer to [facility] and we are waiting on a bed. Continue vanc, Zosyn and Levaquin, started 10/28/2021, remainder of cultures and chemistries from the thoracentesis are pending. Discussed with Genesis Adams, will follow with you. Subjective Date/time seen: 10/30/22 11:23 Interval history: 10/29/2022:? This is a new pulmonary consult for loculated right pleural effusion.? 42-year-old male with a history of tobacco use and on no home medications presented to the emergency room on 10/28/2021 with shortness of breath and fatigue. At baseline patient states that approximately 6 months ago he noted that he was when did and felt obese and out of shape. In September 2022 he started going to the gym 5 times a week and he walks on the treadmill for 15-20 minutes and sweats but does not drip sweat.? He then lifts weights for another hour.? Patient currently works at [employer] and is able to complete an 8 hour day on his feet all day and says that he walks anywhere from 8000 to 51747 steps a day. At baseline he has shortness of breath when walking up less than 1 flight of stairs. ?patient smokes tobacco from age 17 to current at 1 and half packs per day for total of 37 pack years.? Patient is exposed to secondhand smoke from his current .? 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 Patient was in his usual state of health until 10/11/2022 when he developed an illness with cough, fever and chills, body aches, nasal congestion with nasal drainage and phlegm production.? He had no hemoptysis.? Patient remains sick with some improvement over the respiratory complaints over the next week but then the development of shor
--- NOTE | 2022-10-30 12:49 | PC.NURSE ---
Pt has ambulated independently around unit today. Pt tolerates movement well. Pt continues to be treated with antibiotics. Pt has participated and contributed in plan of care. Pt has no complaints of pain and expresses no needs at this time. Pt is to be transferred to [facility] for higher level of care. We are waiting on bed placement to transfer pt out. Will continue to monitor pt.
[2022-10-30] MEDS: PERFLUTREN LIPID MICROSPHERES 1.5 ML VIAL DILUTED TO 10 ML TOTAL VOLUME IV PUSH (14:19)
--- NOTE | 2022-10-30 14:21 | IVDEFINITY ---
Prior to administration of IV Definity the patient was educated on the risks and benefits of the imaging enhancing agent including potential adverse side effects. The patient verbalized understanding. Allergies were verified. No exclusion criteria were identified and at least one of the following inclusion criteria were met: 1) physician request, 2) patient technically difficult to image (per the [place] [employer] guidelines of two or more segments not discernable within the apical view), or 3) questionable left ventricular function. ?
[2022-11-02 05:57] LABS: Glucose Pleural Fluid 124 mg/dL; Total Protein Pleural Fluid 3.1 g/dL
[2022-11-03 17:59] LABS: Amylase, Pleural Fluid <10 U/L
[2022-11-04 13:36] LABS: Albumin Pleural Fluid 1.7 g/dL
--- NOTE | 2022-11-05 15:48 | PM.TDS ---
Transfer Discharge Sum: Prov Provider Date of admission: 10/28/22 17:57 Primary care physician: WORKFORCE MANAGEMENT ANALYST PHYSICIAN Admitting clinician: Blanka Lanza MD Attending physician on admission: Jj Steinberg Consults: 10/28/22 18:00 Consult to Physician Routine Comment: Consulting Provider: Joe Rome Reason for consultation: Loculated pleural effusion, rule out empyema, pneumonia Has provider been notified: Yes Attending physician on discharge: Jj Steinberg Discharging clinician: Genesis Adams Anticipated date of transfer: 10/30/22 DS: Admitting Diagnosis Discharge Date 10/30/22 Admitting Diagnosis Right pleural effusion DS: Discharge Diagnosis Discharge Diagnosis (1) Pleural effusion on right: Code(s): J90 - Pleural effusion, not elsewhere classified Status: Inactive Assessment and Plan: Patient presents to the ED with shortness of breath on exertion and productive cough with clear sputum. CTA suspicious for empyema, and pneumonia. ER physician consulted Dr. Rome.? Dr. Rome following patient and appreciate recommendations. Therapeutic thoracentesis conducted today and yielded 200 mL of opaque red fluid Small to moderate loculated pleural fluid collection in the right hemithorax, as detailed above, suspicious for empyema. Other complex/exudative effusions are within the differential diagnosis. Zosyn, Levaquin and vancomycin nebulizer treatments Cultures are pending Pleural fluid Gram stain negative. 10/30/22 Discussed patient's case with Dr. Rome and he revealed that he was concerned for fibrothorax after talking to IR.? Dr. Rome in contact with Dr. Gonzales, cardiothoracics, at [facility] and he recommends patient undergo thoracotomy.? Empyema still in the differential although an empyema would still require transfer to Cardiothoracic surgery. Contacted [facility] transfer line.? Patient is on wait list at [facility].? Expecting transfer in the next day or 2. Advised by Cardiothoracic surgery that patient be continued on IV antibiotic therapy. Patient remains afebrile with mild symptoms such as shortness of breath with exertion and mild cough. Cultures pending Discussed smoking cessation for approximately 3 minutes. (2) Acute hypokalemia: Code(s): E87.6 - Hypokalemia Status: Acute Assessment and Plan: Patient with hypokalemia upon ED arrival Replace potassium as necessary (3) Tobacco use: Code(s): Z72.0 - Tobacco use Status: Acute Assessment and Plan: The patient has been ordered a nicotine patch Transfer Discharge Sum: Med Medications Active and Home Medications: Home Medications No Home Medications 10/28/22 [History Confirmed 10/29/22] Transfer Discharge Sum: Hosp Hospital Course Hospital course: Conrado Aden is a 42 year old male the present to the ED on 10/28/2022 with progressive shortness of breath. Patient had been having cold symptoms 2 weeks prior and was getting short of breath with exertion as well as a productive cough with clear sputum. Patient thought symptoms would improve over time but they did not. Patient negative for COVID and flu. CTA suspicious for empyema. Patient started on Levaquin, Zosyn and vancomycin. Pulmonology consulted. The therapeutic thoracentesis conducted on 10/29/2022 and yielded 200 mL of opaque red fluid. Case was discussed with pulmonology and into the Dr. oRme concerned for fibrothorax after talking to IR post thoracentesis. Dr. Rome contacted Cardiothoracic set at [facility] and it was recommended the patient undergo thoracotomy. Empyema still in differential although an empyema was still require transfer to Cardiothoracic surgery. I contacted the [facility] transfer line and patient was accepted on the wait list and will be transferred to [facility]. Is advised by Cardiothoracic surgery the patient continue on IV antibiotic the
== END 2022-10-30 20:10 | disposition short-term general hospital (02) | DRG 143 ==
LOC: ANHED 17:50 → ANH3MEDSUR 23:11
PROVIDERS: Internal Medicine Critical Care Medicine; Internal Medicine Pulmonary Disease; Physician Assistant; Admitting Provider Internal Medicine; Emergency Provider Emergency Medicine; Visit Provider Internal Medicine
DX: J90 Pleural effusion, not elsewhere classified (principal); J86.9 Pyothorax without fistula; J18.9 Pneumonia, unspecified organism; J94.1 Fibrothorax; E87.6 Hypokalemia; F17.210 Nicotine dependence, cigarettes, uncomplicated; K21.9 Gastro-esophageal reflux disease without esophagitis; K58.9 Irritable bowel syndrome, unspecified; Z20.822 Contact with and (suspected) exposure to COVID-19
CPT/HCPCS: 32555; 36415; 36600; 71045; 71275; 80048; 80053; 80202; 82042; 82150; 82805; 82945; 83615; 83880; 83986; 84157; 84478; 84484; 85025; 85380; 85610; 85730; 87015; 87040; 87070; 87075; 87102; 87116; 87205; 87206; 88108; 88184; 88305; 89051; 93005; 94640; 99285; A9270; C8929; J1956; J2543; J3370; J7030; Q9957; Q9967; U0003; U0005

== ENCOUNTER 2022-11-26 11:31 | Emergency (ER) | payer OTHER, SELFPAY ==
[2022-11-26 11:39] VITALS: BP 156/76; PULSE 94; RESP 20; TEMP 36.8; O2SAT 98
[2022-11-26 13:41] LABS: Basophils Absolute Auto 0.1 K/mm3 (0.0-0.1); Eosinophils Absolute Auto 0.6 K/mm3 (0-0.3); Eosinophils Percent Auto 4.6 % (0-4.4); Hematocrit 43.6 % (42.0-52.0); Hemoglobin 14.5 g/dL (14.0-18.0); Immature Granulocyte Absolute 0.04 K/mm3 (0.00-0.031); Immature Granulocyte Percent A 0.3 % (0-0.5); Lymphocytes Absolute Auto 3.35 K/mm3 (0.9-3.2); Lymphocytes Percent Auto 27.2 % (18.3-44.2); Mean Corpuscular HGB Conc 33.3 g/dl (32-36); Mean Corpuscular Hemoglobin 29.1 pg (26-34); Mean Corpuscular Volume 87.6 fl (80-100); Mean Platelet Volume 9.9 fl (7.4-10.4); Monocytes Absolute Auto 0.7 K/mm3 (0.1-0.6); Monocytes Percent Auto 5.5 % (2.6-8.5); Neutrophils Absolute Auto 7.5 K/mm3 (1.3-6.7); Neutrophils Percent Auto 61.4 % (45.5-73.1); Platelet Count Result 249 k/mm3 (150-375); Red Blood Count 4.98 M/mm3 (4.6-6.20); Red Cell Distribution Width 13.5 % (11.5-14.5); White Blood Count 12.3 K/mm3 (4.5-10.0)
[2022-11-26 13:51] LABS: Alanine Aminotransferase 47 U/L (6-50); Albumin Level 4.2 g/dL (3.5-5.1); Alkaline Phosphatase 124 U/L (38-126); Anion Gap 8 mmol/L (8-16); Aspartate Amino Transferase 41 U/L (17-59); Bilirubin,Total 0.7 mg/dL (0.2-1.3); Blood Urea Nitrogen 15 mg/dL (9-20); Calcium 8.8 mg/dL (8.4-10.2); Carbon Dioxide 26 mmol/L (22-30); Chloride 102 mmol/L (98-107); Estimated CRCL calculation 186 ml/min; Estimated Glomerular Filt Rate > 60; Glucose 183 mg/dL (65-110); Lipase 108 U/L (23-300); Potassium 3.8 mmol/L (3.4-5.0); Sodium 136 mmol/L (137-145)
--- NOTE | 2022-11-26 18:53 | PC.NURSE ---
I called [facility] and they said that I could get seen in less than an hour so I'm going to leave and go there . Patient requested this RN to remove armband. Ambulated out of department without assistance.
== END 2022-11-26 19:12 | disposition left against medical advice (07) ==
LOC: ANHED 19:10
PROVIDERS: Emergency Provider Emergency Medicine
DX: R10.9 Unspecified abdominal pain (principal)
CPT/HCPCS: 36415; 80053; 83690; 85025; 99199

== ENCOUNTER 2025-09-06 09:48 | Emergency (ER) | payer SELFPAY ==
--- NOTE | ~2025-09-06 | XR_ITS ---
Examination: XR knee LT min 4V Clinical History: injury Comparison: None Technique: Portable AP Findings/impression: 1. Small joint effusion. 2. No fracture or dislocation. Reviewed, dictated and finalized at location [facility]
[2025-09-06 09:55] VITALS: BP 149/96; PULSE 70; RESP 16; TEMP 36.7; O2SAT 100
--- NOTE | 2025-09-06 10:13 | ED.LOWEXIN ---
HPI - Extremity Injury (Lower) General Chief Complaint: Extremity Injury, Lower Stated Complaint: L Knee Time Seen by Provider: 09/06/25 10:34 Source: patient and RN notes reviewed Mode of arrival: ambulatory Limitations: no limitations History of Present Illness HPI Narrative: 45-year-old male presents with concern for left knee pain. Reports he has had a sore knee for a few weeks that have been getting worse, 3 days ago he was crossing a street and he stepped on a curb and heard a loud pop in the knee and has had worsening pain and swelling since then. Reports pain at rest, worsening pain with flexion and extension and weight-bearing. He has not taken any medication or other intervention for this pain. 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 MD complaint: knee injury Related Data Allergies Allergy/AdvReac Type Severity Reaction Status Date / Time No Known Allergies Allergy Verified 09/06/25 09:54 Review of Systems Review of Systems: CONSTITUTIONAL: Denies malaise, chills, sweats, or fever. SKIN: Denies rash or itching, open skin, laceration, abrasion, redness, warmth MUSCULOSKELETAL: Reports left knee pain and swelling NEUROLOGIC: Denies numbness, weakness All systems reviewed & are unremarkable except as noted in HPI and below PMFSH Past Medical History Medical History (Updated 09/06/25 @ 10:43 by Valery Feng APRN) IBS (irritable bowel syndrome) History of gastroesophageal reflux (GERD) Surgical History Surgical History (Updated 12/27/22 @ 15:28 by Gustabo Ramos) H/O Spinal surgery ALIF for L5, S1, 2012 Family History Family History (System 12/27/22 @ 15:28 by Gusatbo Ramos) Father Chronic a-fib Grandparent Acute myocardial infarction Other Unknown family medical history Social History Social History (System 12/27/22 @ 15:28 by Gustabo Ramos) Social History: Patient is and has 2 children. He works [employer] in [employer] [facility]. The patient smokes every day. Code status full code Smoking packs per day: 2 Smoking cigarettes per day: 40.0 Years smoked: 25 Smoking pack-years: 50.00 Smoking status: Heavy tobacco smoker Tobacco type: cigarettes Alcohol intake: former Substance use: former Lack of Transportation: No Lack of Food: Never True Current Housing: I Have Housing Concerned About Future Housing: No Difficulty Paying Gas/Electric Bills: No Difficulty Paying for Meds: YES Currently Unemployed: No Education: High School Diploma/GED Difficulty w/ Childcare or Family Care: No Gender identity (if verbalized by the patient): Male Spiritual care concerns: No Comments At time of signature, agree with nursing past medical, surgical, social and family history. There is no relevant family history pertinent to the presenting complaint Exam Narrative: GENERAL: Well-appearing, well-nourished, and in no acute distress. HEAD: Normocephalic, atraumatic. EYES: PERRLA, conjunctivae clear NECK: Supple. CHEST: Speaks in full sentences. No respiratory distress. HEART: Regular rate and rhythm. Normal and equal peripheral pulses. EXTREMITIES: Left knee has grossly normal strength and sensation, limited range of motion. Moderate edema without erythema, warmth or ecchymosis. 3/5 strength with knee flexion and extension. Normal sensation with sensitivity to light touch and pain. Medial knee tenderness. No open wounds, no skin tenting, no devitalized tissue or atrophy, no trophic changes, no obvious deformity, alignment normal, nearby joints and structures intact. Distal pulses palpable and equal bilaterally, skin warm, dry, pink. Capillary refill less than 3 seconds. SKIN: Warm, dry, no rash. NEURO: Alert and oriented x3. PSYCH: Normal mood and affect Course Course Emergency Course: Patient is aware of diagnosis, understands and agrees to treatment plan. Anticipatory guidance given. Patient agrees to follow-up as directed and is aware of reasons to seek care at the emergency department. Portions of this record may have been created with voice recognition software Level of Care: Express Care Visit Vital Signs Vital signs: Vital Signs Temperature 98.1 F 09/06/25 09:55 Pulse Rate 70 09/06/25 09:55 Respiratory Rate 16 09/06/25 09:55 Blood Pressure 149/96 H 09/06/25 09:55 Pulse Oximetry 100 09/06/25 09:55 Oxygen Delivery Room Air 09/06/25 09:55 Temperature 98.1 F 09/06/25 09:55 Pulse Rate 70 09/06/25 09:55 Respiratory Rate 16 09/06/25 09:55 Blood Pressure 149/96 H 09/06/25 09:55 Pulse Oximetry 100 09/06/25 09:55 Oxygen Delivery Room Air 09/06/25 09:55 [facility] Differential Diagnosis Differential Diagnosis: I evaluated this patient in the [facility]. History is obtained from patient who is an independent historian and physical exam was performed.? Available medical records were reviewed. ? Exam findings and relevant testing show no acute concerns or changes; patient is non-toxic appearing and is in no distress. ? Patients injury and pain is consistent with musculoskeletal etiology. No signs of neurological or vascular compromise on exam. Compartments and tissues are soft without signs of compartment syndrome. Pain is felt appropriate for further evaluation on an outpatient basis. Differential diagnosis and treatment plan were discussed with the patient. Patient agrees with discussion and after shared medical decision making agrees with plan of care. All questions were answered to the patient's satisfaction. Patient is appropriate for outpatient treatment and follow-up. Discharge Plan Discharge Clinical Impression: Injury of knee, Effusion of knee joint right Patient Disposition: Home Condition: Stable Instructions: Swollen Knee Joint (ED) Additional Instructions: Avoid activities that cause pain until the pain subsides. Ice to the area 20-30 minutes 4-6 times a day Elevate above heart Elastic wrap as directed for comfort for the next 5-7 days Tylenol for lesser pain Ibuprofen regularly for the next 2-3 days for the inflammation Follow up with your primary care provider if the condition is not improving within 1 week. If the condition worsens with numbness, tingling, decrease sensation with weakness seek treatment in the emergency room immediately. Patient Language: Korean Prescriptions: New ibuprofen 800 mg tablet 800 mg PO Q6H PRN (Reason: pain) Qty: 30 0RF Follow-up/Referrals: Leopoldo Faith MD [Primary Care Provider, Family Practice] Marcellus Dai MD [Physician, Orthopedics] Stand Alone Forms: Work/School Release IP Time of Disposition: 10:43
== END 2025-09-06 10:49 | disposition home or self-care (01) ==
PROVIDERS: Emergency Provider Nurse Practitioner; PCP Emergency Medicine
DX: S89.91XA Unspecified injury of right lower leg, initial encounter (principal); X58.XXXA Exposure to other specified factors, initial encounter; M25.462 Effusion, left knee; K21.9 Gastro-esophageal reflux disease without esophagitis; F17.210 Nicotine dependence, cigarettes, uncomplicated
CPT/HCPCS: 73564; 99213; G0463